=== PATIENT | female | born 1995 | race Caucasian/White ===

== ENCOUNTER 2024-04-14 08:30 | Emergency (ER) | payer OTHER ==
[~2024-04-14] VITALS: Ht 185.4 cm; Wt 93.4 kg
--- NOTE | 2024-04-14 08:50 | NUR ---
RECEVED PT 28YRS MALE WALKING IN TO ED C/O BACK PAIN AND CHEST PAIN X 1 DAY DINESES SOB OR DISTRESSS
--- NOTE | 2024-04-14 08:55 | NUR ---
SEEN BY DR. HUERTA
--- NOTE | 2024-04-14 09:00 | NUR ---
BLOOD DROW BY SERVICES ACCOUNT MANAGER
--- NOTE | 2024-04-14 09:15 | NUR ---
X RAY DONE AT BED SIDE
[2024-04-14 09:17] LABS: BASOPHILS % (AUTO) 0.1 % (0.0-2.0); EOSINOPHILS # (AUTO) 0.1 K/uL (0.0-0.7); EOSINOPHILS % (AUTO) 0.8 % (0.0-6.0); HEMATOCRIT 38 % (33-45); HEMOGLOBIN 12.6 g/dL (11.5-14.8); LYMPHOCYTES # (AUTO) 2.8 K/uL (0.8-4.8); MEAN CORPUSCULAR HEMOGLOBIN 29 PG (26.0-33.0); MEAN CORPUSCULAR HGB CONC 34 g/dl (31.0-36.0); MEAN CORPUSCULAR VOLUME 86 fL (82-100); NEUTROPHILS # (AUTO) 10.3 K/uL (1.8-8.9); NEUTROPHILS % (AUTO) 72.1 % (43.0-81.0); PLATELET COUNT (AUTO) 346 K/uL (150-450); RED BLOOD CELL COUNT(AUTO) 4.37 MIL/uL (4.0-5.2); RED CELL DISTRIBUTION WIDTH 14.3 % (11.5-15.0); WHITE BLOOD COUNT (AUTO) 14.3 K/uL (4.3-11.0)
[2024-04-14 09:37] LABS: CALCIUM, SERUM 9.3 mg/dL (8.5-10.1); CARBON DIOXIDE 30 mmol/L (21-32); CHLORIDE 103 mmol/L (98-107); GLUCOSE 83 mg/dL (74-106); POTASSIUM 4.1 mmol/L (3.5-5.1); SODIUM SERUM 138 mmol/L (136-145); UREA NITROGEN, BLOOD 13 mg/dL (7-18)
[2024-04-14] MEDS ORDERED: AZIT250T PO (10:02)
[2024-04-14] MEDS ORDERED: IBUP-1953 PO (10:02)
--- NOTE | 2024-04-14 10:05 | NUR ---
DR. HUERTA AT BED SIDE SPOOKING WITH PT ABOUT LAB RESULT AND PLAN OF CARE
--- NOTE | 2024-04-14 10:18 | NUR ---
Patient discharged to home in stable condition. Written and verbal after care instructions given. Patient verbalizes understanding of instruction.
[2024-04-14 10:24] VITALS: BP 116/87; TEMP 97.9; O2SAT 18
== END 2024-04-14 10:31 | disposition home or self-care (01) ==
LOC: ER 08:36
DX: J40 Bronchitis, not specified as acute or chronic (principal); R09.1 Pleurisy; R05.9 Cough, unspecified; R07.89 Other chest pain; M54.6 Pain in thoracic spine; F64.0 Transsexualism; Z79.890 Hormone replacement therapy
CPT/HCPCS: 36415; 71045-TC; 80048-TC; 84484-TC; 85025-TC; 85378-TC